=== PATIENT | female | born 1955 | race Caucasian/White ===

== ENCOUNTER 2023-11-10 10:19 | Day surgery (SDC) | payer OTHER ==
[2023-11-08 08:55] LABS: Absolute Lymphocytes (CBC) 1.4 K/uL (0.7-4.9); Hematocrit 38.2 % (36.0-45.0); Lymphocytes % 28.6 % (15.3-44.8); MCV 97.4 fL (80-100); MPV 8.1 fL (7.6-11.3); Platelets 147 thou/uL (152-406); RBC Red Blood Cell Count 3.92 M/uL (3.86-4.86)
[2023-11-08 09:07] LABS: Potassium 4.3 mEq/L (3.5-5.1)
[2023-11-10] MEDS: Ringers Lactate 1,000 ML IV ONE (10:40)
[2023-11-10] MEDS ORDERED: propofoL 200 MG/20 ML VIAL IV ONE (11:32)
[2023-11-10] MEDS ORDERED: LIDOCAINE 1% MPF 5 ML VIAL ONE (11:33)
[2023-11-10 14:40] VITALS: BP 121/56; TEMP 97; O2SAT 100
== END 2023-11-10 14:28 | disposition home or self-care (01) ==
LOC: OR 10:19
PROVIDERS: ATTEND Surgery
PROC: 0DBN8ZX Excision of Sigmoid Colon, Via Natural or Artificial Opening Endoscopic, Diagnostic (ICD-10-PCS; 2023-11-10)
PROC: 0DBH8ZX Excision of Cecum, Via Natural or Artificial Opening Endoscopic, Diagnostic (ICD-10-PCS; principal; 2023-11-10 12:30)
DX: Z12.11 Encounter for screening for malignant neoplasm of colon (principal); K63.5 Polyp of colon; D12.0 Benign neoplasm of cecum; K64.8 Other hemorrhoids
CPT/HCPCS: 85025; 80048; 36415; 88304; 45385; J2704; J2001; J7120; 88305